=== PATIENT | male | born 1980 | race Caucasian/White ===

== ENCOUNTER 2021-02-15 11:07 | Emergency (ER) | payer OTHER ==
[~2021-02-15 11:07] MED LIST: CARAFATE1 GM PO; NORCO 5-325 TA1 EACH PO; PROTONIX 40MG T40 MG PO
[2021-02-15] MEDS ORDERED: IBU600 MG PO (12:57)
== END 2021-02-15 13:37 | disposition home or self-care (01) ==
LOC: FER 11:07
DX: S63.8X2A Sprain of other part of left wrist and hand, initial encounter (principal); W23.1XXA Caught, crushed, jammed, or pinched between stationary objects, initial encounter; Y92.89 Other specified places as the place of occurrence of the external cause; Y99.0 Civilian activity done for income or pay
CPT/HCPCS: 73140

== ENCOUNTER 2021-12-22 19:16 | Emergency (ER) | payer OTHER ==
[~2021-12-22 19:16] MED LIST changes: +IBU600 MG PO
[2021-12-22 19:45] LABS: BASOPHIL 0.5 % (0-2); EOSINOPHIL 0.3 % (0-5); HCT 42.3 % (42.0-52.0); LYMPHOCYTE 12.2 % (15-48); MCH 31.9 pg (25.0-31.0); MCHC 35.5 g/dL (32.0-36.0); MONOCYTE 5.6 % (0-12); MPV 9.9 fL (6.0-9.5); NRBC 0; PLT 240 K/uL (150-400); RDW 12.4 % (11.5-14.0); WBC 14.9 K/uL (4.0-10.5)
[2021-12-22 19:48] LABS: INR 1.02 (0.9-1.2); PROTHROMBIN TIME 12.8 SECONDS (11.8-13.4)
[2021-12-22 20:00] LABS: ALBUMIN 4.3 g/dL (3.4-5.0); BILIRUBIN - TOTAL 0.4 mg/dL (0.2-1.0); GLOBULIN (CALCULATION) 3.6 g/dL; POTASSIUM 3.8 mmol/L (3.5-5.1); TOTAL PROTEIN 7.9 g/dL (6.4-8.2)
[2021-12-23 00:13] LABS: AMPHETAMINES NEGATIVE (NEGATIVE); BARBITURATES NEGATIVE (NEGATIVE); ECSTASY (MDMA) NEGATIVE (NEGATIVE); MARIJUANA (THC) POSITIVE (NEGATIVE); METHADONE NEGATIVE (NEGATIVE); OPIATES NEGATIVE (NEGATIVE); OXYCODONE NEGATIVE (NEGATIVE)
== END 2021-12-22 20:10 | disposition other institution (70) ==
LOC: FER 19:16
PROVIDERS: Internal Medicine
DX: I21.19 ST elevation (STEMI) myocardial infarction involving other coronary artery of inferior wall (principal); U07.1 COVID-19; F17.290 Nicotine dependence, other tobacco product, uncomplicated
CPT/HCPCS: 36415; 80053; 80305; 84484; 85025; 85610; 85730; 93005; J1644; J2060; J3010; U0002

== ENCOUNTER 2022-03-09 15:53 | Emergency (ER) | payer OTHER ==
[2022-03-09 16:31] LABS: BASOPHIL 0.8 % (0-2); EOSINOPHIL 0.5 % (0-5); HGB 14.8 g/dl (13.2-18.0); LYMPHOCYTE 23.7 % (15-48); MCHC 34.4 g/dL (32.0-36.0); MCV 93.1 fL (78.0-100.0); MONOCYTE 8.6 % (0-12); MPV 10.3 fL (6.0-9.5); NEUTROPHIL 66.1 % (41-80); NRBC 0; PLT 239 K/uL (150-400); RBC 4.62 M/uL (4.70-6.00); RDW 12.1 % (11.5-14.0); WBC 7.4 K/uL (4.0-10.5)
[2022-03-09 16:39] LABS: BILIRUBIN NEGATIVE (NEGATIVE); BLOOD NEGATIVE Ery/uL (NEGATIVE); CLARITY CLEAR (CLEAR); COLOR YELLOW (YELLOW); GLUCOSE (U) NORMAL (NORMAL); LEUKOCYTES NEGATIVE Leu/uL (NEGATIVE); NITRITE NEGATIVE (NEGATIVE); PROTEIN NEGATIVE (NEGATIVE); UROBILINOGEN 0.2 mg/dL (0.2-1.0)
[2022-03-09 16:53] LABS: ALBUMIN 4.2 g/dL (3.4-5.0); TOTAL PROTEIN 7.2 g/dL (6.4-8.2)
[2022-03-09] MEDS ORDERED: BENTYL10 MG PO (19:45)
[2022-03-09] MEDS ORDERED: CIPRO500 MG PO (19:45)
[2022-03-09] MEDS ORDERED: METRONIDAZOLE500 MG PO (19:45)
[2022-03-09] MEDS ORDERED: ONDANSETRON HCL4 MG PO (19:45)
== END 2022-03-09 20:20 | disposition home or self-care (01) ==
LOC: FER 15:53
PROVIDERS: Nurse Practitioner Family
DX: K52.9 Noninfective gastroenteritis and colitis, unspecified (principal); I10 Essential (primary) hypertension; Z88.6 Allergy status to analgesic agent; Z79.82 Long term (current) use of aspirin; Z79.899 Other long term (current) drug therapy; Z28.310 Unvaccinated for COVID-19
CPT/HCPCS: 36415; 80053; 81003; 82150; 83690; 85025; J7030; Q9967